=== PATIENT | male | born 1960 | race American Indian/Alaskan Native ===

== ENCOUNTER 2018-11-15 19:00 | Emergency (ER) | payer MEDICARE ==
[2018-11-15 20:05] LABS: Basophils % (Auto) 0.6 % (0.0-1.8); Eosinophils % (Auto) 0.5 % (0.0-4.3); Hematocrit 45.2 % (35.5-45.6); Lymphocytes # (Auto) 1.7 K/mm3 (1.2-5.4); Lymphocytes % (Auto) 35.8 % (13.4-35.0); Mean Corpuscular HGB Conc 33 % (32-34); Mean Corpuscular Volume 84 fl (84-94); Monocytes # (Auto) 0.4 K/mm3 (0.0-0.8); Monocytes % (Auto) 9.3 % (0.0-7.3); Platelet Count 209 K/mm3 (140-440); Red Blood Count 5.38 M/mm3 (3.65-5.03); Red Cell Distribution Width 16.4 % (13.2-15.2)
[2018-11-15 20:24] LABS: BUN/Creatinine Ratio 10; Blood Urea Nitrogen 8 mg/dL (9-20); Calcium 9.6 mg/dL (8.4-10.2); Hemolysis Index 1
--- NOTE | 2018-11-15 20:50 | Emergency Department Report ---
ED General Adult HPI - General Chief complaint: Medical Clearance Stated complaint: MENTAL HEALTH/HEARING VOICES Time Seen by Provider: 11/15/18 20:13 Source: patient, EMS (ems notes not available at time of chart dictation), RN notes reviewed Mode of arrival: Ambulatory Limitations: No Limitations - History of Present Illness Initial comments: This is a 58-year-old gentleman. The patient is not known to this provider previously. The patient reportedly has a history of high cholesterol, and schizophrenia. He presents to the ER with a request for fluphenazine refill. He can't remember the last time he took this medication. He doesn't recall who prescribed to him. He used to live in [place]. He recently moved here to [place] to be with family. Denies physical pain. He is not homicidal. He is not suicidal. He does not want to overdose. He has chronic auditory hallucinations. Improves with: none Worsens with: none Associated Symptoms: denies other symptoms - Related Data Home Medications Medication Instructions Recorded Confirmed Last Taken AtorvaSTATin [Lipitor] 10 mg PO QHS 11/15/18 11/15/18 Unknown Pantoprazole [Protonix TAB] 20 mg QDAY 11/15/18 11/15/18 Unknown fluPHENAZine HCl [fluPHENAZine] 10 mg PO QDAY 11/15/18 11/15/18 Unknown Allergies Allergy/AdvReac Type Severity Reaction Status Date / Time No Known Allergies Allergy Unverified 11/15/18 19:09 ED Review of Systems ROS: Stated complaint: MENTAL HEALTH/HEARING VOICES Other details as noted in HPI Constitutional: denies: fever Eyes: denies: eye pain ENT: denies: ear pain, throat pain Cardiovascular: denies: chest pain Gastrointestinal: denies: abdominal pain Musculoskeletal: denies: back pain Psychiatric: auditory hallucinations. denies: homicidal thoughts, suicidal thoughts ED Past Medical Hx - Past Medical History Previous Medical History?: Yes Hx Psychiatric Treatment: Yes (Schizophrenia) - Surgical History Past Surgical History?: No - Social History Smoking Status: Current Every Day Smoker Substance Use Type: None - Medications Home Medications: Home Medications Medication Instructions Recorded Confirmed Last Taken Type AtorvaSTATin [Lipitor] 10 mg PO QHS 11/15/18 11/15/18 Unknown History Pantoprazole [Protonix TAB] 20 mg QDAY 11/15/18 11/15/18 Unknown History fluPHENAZine HCl [fluPHENAZine] 10 mg PO QDAY 11/15/18 11/15/18 Unknown History ED Physical Exam - General Limitations: No Limitations General appearance: alert, in no apparent distress - Head Head exam: Present: atraumatic, normocephalic - Eye Eye exam: Present: normal appearance, EOMI. Absent: nystagmus - ENT ENT exam: Present: normal exam, normal orophraynx, mucous membranes moist, normal external ear exam - Neck Neck exam: Present: normal inspection, full ROM. Absent: tenderness, meningismus - Respiratory Respiratory exam: Present: normal lung sounds bilaterally. Absent: respiratory distress, wheezes, rales, rhonchi, stridor - Cardiovascular Cardiovascular Exam: Present: regular rate, normal rhythm, normal heart sounds. Absent: bradycardia, tachycardia, irregular rhythm, systolic murmur, diastolic murmur, rubs, gallop - GI/Abdominal GI/Abdominal exam: Present: soft. Absent: distended, tenderness, guarding, rebound, rigid, pulsatile mass - Rectal Rectal exam: Present: deferred - Extremities Exam Extremities exam: Present: normal inspection, full ROM, other (2+ pulses noted in the bilateral upper extremities. There is no long bony tenderness. The compartments are soft. The pelvis is stable.). Absent: pedal edema, calf tenderness - Back Exam Back exam: Present: normal inspection, full ROM. Absent: tenderness, CVA tenderness (R), CVA tenderness (L), paraspinal tenderness, vertebral tenderness - Neurological Exam Neurological exam: Present: alert, oriented X3, normal gait, other (Extraocular movements intact. Tongue midline. No facial droop. Facial sensation intact to light touch in the V1, V2, V3 distribution bilaterally. 5 and 5 strength in 4 extremities.. Sensation is intact to light touch in 4 extremities.). Absent: motor sensory deficit - Psychiatric Psychiatric exam: Present: flat affect. Absent: homicidal ideation, suicidal ideation - Skin Skin exam: Present: warm, dry, intact, normal color. Absent: rash ED Course Vital Signs 11/15/18 19:09 Temperature 98.0 F Pulse Rate 94 H Respiratory 18 Rate Blood Pressure 162/88 O2 Sat by Pulse 98 Oximetry ED Medical Decision Making - Lab Data Result diagrams: 11/15/18 19:50 11/15/18 19:50 Vital Signs 11/15/18 19:09 Temperature 98.0 F Pulse Rate 94 H Respiratory 18 Rate Blood Pressure 162/88 O2 Sat by Pulse 98 Oximetry Lab Results 11/15/18 11/15/18 11/15/18 Range/Units 19:50 19:50 19:50 WBC (4.5-11.0) K/mm3 RBC (3.65-5.03) M/mm3 Hgb (11.8-15.2) gm/dl Hct (35.5-45.6) % MCV (84-94) fl MCH (28-32) pg MCHC (32-34) % RDW (13.2-15.2) % Plt Count (140-440) K/mm3 Lymph % (Auto) (13.4-35.0) % [place] % (Auto) (0.0-7.3) % Eos % (Auto) (0.0-4.3) % Baso % (Auto) (0.0-1.8) % Lymph # (1.2-5.4) K/mm3 Clar[place] # (0.0-0.8) K/mm3 Eos # (0.0-0.4) K/mm3 Baso # (0.0-0.1) K/mm3 Seg Neutrophils % (40.0-70.0) % Seg Neutrophils # (1.8-7.7) K/mm3 Sodium 136 L (137-145) mmol/L Potassium 4.0 (3.6-5.0) mmol/L Chloride 97.7 L (98-107) mmol/L Carbon Dioxide 27 (22-30) mmol/L Anion Gap 15 mmol/L BUN 8 L (9-20) mg/dL Creatinine 0.8 (0.8-1.5) mg/dL Estimated GFR > 60 ml/min BUN/Creatinine Ratio 10 % Glucose 92 (75-100) mg/dL Calcium 9.6 (8.4-10.2) mg/dL Salicylates < 0.3 L (2.8-20.0) mg/dL Acetaminophen < 5.0 L (10.0-30.0) ug/mL Plasma/Serum Alcohol (0-0.07) % 11/15/18 11/15/18 Range/Units 19:50 19:50 WBC 4.6 (4.5-11.0) K/mm3 RBC 5.38 H (3.65-5.03) M/mm3 Hgb 15.0 (11.8-15.2) gm/dl Hct 45.2 (35.5-45.6) % MCV 84 (84-94) fl MCH 28 (28-32) pg MCHC 33 (32-34) % RDW 16.4 H (13.2-15.2) % Plt Count 209 (140-440) K/mm3 Lymph % (Auto) 35.8 H (13.4-35.0) % [place] % (Auto) 9.3 H (0.0-7.3) % Eos % (Auto) 0.5 (0.0-4.3) % Baso % (Auto) 0.6 (0.0-1.8) % Lymph # 1.7 (1.2-5.4) K/mm3 Clar[place] # 0.4 (0.0-0.8) K/mm3 Eos # 0.0 (0.0-0.4) K/mm3 Baso # 0.0 (0.0-0.1) K/mm3 Seg Neutrophils % 53.8 (40.0-70.0) % Seg Neutrophils # 2.5 (1.8-7.7) K/mm3 Sodium (137-145) mmol/L Potassium (3.6-5.0) mmol/L Chloride (98-107) mmol/L Carbon Dioxide (22-30) mmol/L Anion Gap mmol/L BUN (9-20) mg/dL Creatinine (0.8-1.5) mg/dL Estimated GFR ml/min BUN/Creatinine Ratio % Glucose (75-100) mg/dL Calcium (8.4-10.2) mg/dL Salicylates (2.8-20.0) mg/dL Acetaminophen (10.0-30.0) ug/mL Plasma/Serum Alcohol < 0.01 (0-0.07) % - Medical Decision Making Differential diagnosis, including but not limited to: Chronic schizophrenia, chronic auditory hallucinations, encounter for medication refill Assessment and plan: Pleasant and cooperative 58-year-old gentleman, here with chronic hallucinations, not homicidal, not suicidal, does not meet 1013 criteria, with no acute medical complaints. The patient is afebrile with byron ssuring vital signs, with the exception of elevated blood pressure. Screening laboratory studies were sent prior to my evaluation, and they are unremarkable. The patient is clinically sober and endorses no urinary symptoms. He does not require a urinalysis or urine drug screen from an emergency medicine perspective. The patient does not appear to have an emergent medical condition at this time. He does not recall the last time he took fluphenazine. Explained to the patient that this provider does not have expertise or background to prescribe this particular medicine, and that he'll need to follow up with outpatient primary care doctor or psychiatrist for reevaluation. The mental health professional, Miss Fountain, we'll provide the patient with a list of outpatient resources. In addition, as the patient endorses that he does not have insurance, a case management consult has been placed to assist the patient his options for acquisition of insurance. Critical care attestation.: If time is entered above; I have spent that time in minutes in the direct care of this critically ill patient, excluding procedure time. ED Disposition Clinical Impression: General medical exam Disposition: DC-01 TO HOME OR SELFCARE Is pt being admited?: No Does the pt Need Aspirin: No Condition: Stable Additional Instructions: Continue outpatient medications. Follow up with a primary care doctor or p sychiatrist within the next month. Return to the emergency room right away with new, worsening or different symptoms, or symptoms not present on the initial emergency room evaluation. For the patient's convenience, local outpatient psychiatric hospitals have been listed. [facility] is a local outpatient mental health facility available for patient's complaints. [facility] Mental health service in [place], [place] Address: [address], [place] [address] Hours: Open 24 hours [facility] hospital in the [place], [place] Address: [address] [place] [id number] Hours: Open 24 hours Referrals: [facility] [Provider Group] - 3-5 Days [facility] [Provider Group] - 3-5 Days [facility] [Outside] - 3-5 Days
[2018-11-15 21:17] VITALS: BP 175/113
== END 2018-11-15 21:00 | disposition home or self-care (01) ==
LOC: EEVIPCON 19:00 → ED 19:00
DX: F20.9 Schizophrenia, unspecified (principal); F17.200 Nicotine dependence, unspecified, uncomplicated; Z79.899 Other long term (current) drug therapy
CPT/HCPCS: 36415; 80048; 80320; 85025; G0480

== ENCOUNTER 2019-02-18 12:58 | Emergency (ER) | payer MEDICARE ==
--- NOTE | 2019-02-18 16:35 | Emergency Department Report ---
ED General Adult HPI - General Chief complaint: Pain General Stated complaint: SWOLLEN FEET Time Seen by Provider: 02/18/19 13:36 Source: EMS Mode of arrival: Ambulatory Limitations: No Limitations - Related Data Home Medications Medication Instructions Recorded Confirmed Last Taken AtorvaSTATin [Lipitor] 10 mg PO QHS 11/15/18 11/15/18 Unknown Pantoprazole [Protonix TAB] 20 mg QDAY 11/15/18 11/15/18 Unknown fluPHENAZine HCl [fluPHENAZine] 10 mg PO QDAY 11/15/18 11/15/18 Unknown Allergies Allergy/AdvReac Type Severity Reaction Status Date / Time No Known Allergies Allergy Unverified 11/15/18 19:09 ED Review of Systems ROS: Stated complaint: SWOLLEN FEET Other details as noted in HPI Comment: All other systems reviewed and negative ED Past Medical Hx - Past Medical History Previous Medical History?: Yes Hx Psychiatric Treatment: Yes (Schizophrenia) - Surgical History Past Surgical History?: No - Social History Smoking Status: Unknown if ever smoked Substance Use Type: None - Medications Home Medications: Home Medications Medication Instructions Recorded Confirmed Last Taken Type AtorvaSTATin [Lipitor] 10 mg PO QHS 11/15/18 11/15/18 Unknown History Pantoprazole [Protonix TAB] 20 mg QDAY 11/15/18 11/15/18 Unknown History fluPHENAZine HCl [fluPHENAZine] 10 mg PO QDAY 11/15/18 11/15/18 Unknown History ED Physical Exam - General Limitations: No Limitations General appearance: alert, in no apparent distress - Head Head exam: Present: atraumatic, normocephalic - Eye Eye exam: Present: normal appearance - ENT ENT exam: Present: mucous membranes moist - Neck Neck exam: Present: normal inspection - Respiratory Respiratory exam: Present: normal lung sounds bilaterally. Absent: respiratory distress - Cardiovascular Cardiovascular Exam: Present: regular rate, normal rhythm. Absent: systolic murmur, diastolic murmur, rubs, gallop - GI/Abdominal GI/Abdominal exam: Present: soft, normal bowel sounds - Rectal Rectal exam: Present: deferred - Extremities Exam Extremities exam: Present: normal inspection, tenderness (pulses 2+ no cyanosis no clubbing no effusion is noted. Capillary refills are brisk. Popliteal pulses present as well no masses appreciated. No Homans sign. No cords sign.) - Back Exam Back exam: Present: normal inspection - Neurological Exam Neurological exam: Present: alert, oriented X3 - Psychiatric Psychiatric exam: Present: normal affect, normal mood - Skin Skin exam: Present: warm, dry, intact, normal color. Absent: rash ED Course Vital Signs 02/18/19 02/18/19 13:23 14:14 Temperature 98.5 F Pulse Rate 91 H 85 Respiratory 16 16 Rate Blood Pressure 144/87 Blood Pressure 145/95 [Left] O2 Sat by Pulse 99 95 Oximetry ED Medical Decision Making - Medical Decision Making 58-year-old Sudanese presents to the emergency department department complaining of aches and pain to his thighs after walking an excessive period.. He reports no chest pain no flank pain or shortness of breath no dark urine. There is no swelling found on examination to his lower extremities. Patient's primary concern with pain to rest in the bed and receiving a meal during his hospital visit. CK was obtained but was mildly elevated at less than 500. No emergent condition Condition was found and he is neurovascularly intact was advised to follow-up with primary care about him return to the emergency should he feel his his condition is worsening. He was also advised to call emergency department if he did not know what to do Critical care attestation.: If time is entered above; I have spent that time in minutes in the direct care of this critically ill patient, excluding procedure time. ED Disposition Clinical Impression: Myalgia, Pain aggravated by walking Disposition: DC-01 TO HOME OR SELFCARE Is pt being admited?: No Does the pt Need Aspirin: No Condition: Stable Instructions: Musculoskeletal Pain (ED), Rhabdomyolysis (ED) Additional Instructions: We do not have rhabdomyolysis. Please utilize the education form with information regarding treatment at home and when to follow-up with the emergency department
[2019-02-18 16:57] VITALS: BP 154/97
== END 2019-02-18 17:08 | disposition home or self-care (01) ==
LOC: ED 12:58
DX: M79.652 Pain in left thigh (principal); M79.651 Pain in right thigh; F20.9 Schizophrenia, unspecified; Z79.899 Other long term (current) drug therapy
CPT/HCPCS: 36415; 82550